=== PATIENT | female | born 1975 | race Hispanic/Latino ===

== ENCOUNTER 2016-06-02 08:54 | Emergency (ER) | payer SELFPAY ==
[~2016-06-02] VITALS: Ht 121.9 cm; Wt 69.0 kg
[~2016-06-02 08:54] MED LIST: AMOXIL500 MG OR; NO HOME MEDS
[2016-06-02] MEDS ORDERED: PRE-NATAL PO (10:00)
[2016-06-02 10:10] LABS: URINE BILIRUBIN - DIPSTICK NEGATIVE (NEGATIVE); URINE BLOOD DIPSTICK NEGATIVE (NEGATIVE); URINE COLOR YELLOW; URINE GLUCOSE - DIPSTICK 250 mg/dL (NEGATIVE); URINE KETONE NEGATIVE (NEGATIVE); URINE NITRITE - DIPSTICK NEGATIVE (Negative); URINE PROTEIN - DIPSTICK NEGATIVE (NEG-TRACE); URINE SPECIFIC GRAVITY 1.015; URINE UROBILINOGEN - DIPSTICK 0.2 E.U./dL (0.2)
[2016-06-02 10:13] LABS: URINE BACTERIA FEW hpf; URINE CLARITY HAZY; URINE EPITHELIAL CELLS MODERATE EPI/hpf (0-FEW); URINE LEUK ESTERASE MODERATE (NEGATIVE)
[2016-06-02] MEDS ORDERED: CEPHALEXIN500 MG PO (10:45)
[2016-06-02 10:50] VITALS: BP 129/74
== END 2016-06-02 10:50 | disposition home or self-care (01) | DRG 781 ==
LOC: ED 08:54
PROVIDERS: Emergency Medicine
DX: O23.91 Unspecified genitourinary tract infection in pregnancy, first trimester (principal); B95.1 Streptococcus, group B, as the cause of diseases classified elsewhere; Z3A.10 10 weeks gestation of pregnancy